=== PATIENT | male | born 1940 | race Caucasian/White ===

== ENCOUNTER 2016-10-21 23:20 | Inpatient (IN) ==
[2016-10-21] MEDS ORDERED: IOPAMIDOL 100 ML BOTTLE IJ ONE (23:21)
[2016-10-21] MEDS: ONDANSETRON 4 MG/2 ML VIAL ONE ×2 (23:45→23:55)
[2016-10-22 00:18] LABS: Basophils # (Auto) 0.1 K/mcL (0.0-0.3); Basophils % (Auto) 0.6 % (0.0-2.0); Eosinophils # (Auto) 0.2 K/mcL (0.0-0.7); Eosinophils % (Auto) 1.8 % (0.0-7.0); Granulocytes % (Auto) 62.2 % (38.0-78.0); Lymphocytes # (Auto) 2.6 K/mcL (1.5-4.8); Lymphocytes % (Auto) 25.4 % (15.5-49.0); Mean Corpuscular HGB Conc 33.1 g/dL (31.0-36.0); Mean Corpuscular Hemoglobin 32.4 pg (26.0-34.0); Platelet Count 287 K/mcL (140-440); RBC 5.15 M/mcL (4.50-5.90); Red Cell Distribution Width 14.8 % (11.5-14.5)
[2016-10-22 00:33] LABS: Blood Urea Nitrogen 17 mg/dl (8-23)
[2016-10-22 00:53] LABS: ALT/SGPT 14 U/l (0-40); Albumin 3.9 gm/dL (3.2-5.2); Albumin/Globulin Ratio 1.1 (1.0-2.3); Alkaline Phosphatase 58 U/L (39-117); Blood Urea Nitrogen 18 mg/dl (8-23)
[2016-10-22] MEDS ORDERED: LEVOFLOXACIN 500 MG/100 ML BAG IV ONE (01:10)
[2016-10-22] MEDS ORDERED: ACETAMINOPHEN 325 MG TABLET PO PRN (03:57)
[2016-10-22] MEDS ORDERED: MAGNESIUM HYDROXIDE 30 ML ORAL.SUSP PO PRN (03:57)
[2016-10-22] MEDS ORDERED: ONDANSETRON 4 MG/2 ML VIAL IV PRN (03:57)
[2016-10-22] MEDS ORDERED: DOCUSATE SODIUM 100 MG CAPSULE PO PRN (03:57)
[2016-10-22] MEDS ORDERED: ALBUTEROL SULFATE 2.5 MG/3 ML NEBULIZER NEB PRN (03:57)
[2016-10-22 06:44] LABS: ALT/SGPT 12 U/l (0-40); Albumin 3.6 gm/dL (3.2-5.2); Albumin/Globulin Ratio 1.2 (1.0-2.3); Alkaline Phosphatase 52 U/L (39-117); Basophils # (Auto) 0.1 K/mcL (0.0-0.3); Basophils % (Auto) 0.5 % (0.0-2.0); Bilirubin,Direct 0.2 mg/dL (0.0-0.3); Blood Urea Nitrogen 14 mg/dl (8-23); Eosinophils # (Auto) 0 K/mcL (0.0-0.7); Eosinophils % (Auto) 0.2 % (0.0-7.0); Gamma Glutamyl Transpeptidase 39 U/L (8-61); Lymphocytes # (Auto) 1.1 K/mcL (1.5-4.8); Lymphocytes % (Auto) 7.4 % (15.5-49.0); Magnesium 1.6 mg/dL (1.6-2.5); Mean Cell Volume 97.3 fL (80.0-100.0); Mean Corpuscular HGB Conc 33.3 g/dL (31.0-36.0); Mean Corpuscular Hemoglobin 32.4 pg (26.0-34.0); Monocytes # (Auto) 0.9 K/mcL (0.1-0.9); Monocytes % (Auto) 5.9 % (1.0-12.0); Platelet Count 287 K/mcL (140-440); RBC 4.93 M/mcL (4.50-5.90); Red Cell Distribution Width 14.8 % (11.5-14.5); Uric Acid 9.5 mg/dL (2.5-8.0)
--- NOTE | 2016-10-22 07:13 | Internal Med History&Physical ---
Medical - H&P: HPI Patient information: Note initiated : 10/22/16 at 7:08 am Service Date, if different from initiated Date: [] Patient: Jeffry Linares 76 y/o M admitted on 10/22/16 for Stroke (neurology). Chief Complaint: [] History of present illness: Mr. Linares is a 76 year old man who lives in [place]. He apparently drives to [place] and a [employer] [place], often, to visit family. He apparently drove here from [place] yesterday, and then checked into a motel. After that he went across the street to a restaurant and bar and drank a great number of years. His 16-year-old grandson noticed that he was having a hard time staying upright on his stool, and his speech seemed off. He also noted that he try to eat dinner, and then started to cough and seem short of breath after trying to eat. The patient did not really recall most of these events. The patient was brought into the emergency room around midnight, and was found to have room air oxygen saturations in the mid 80s. The patient cannot recall recent fever or chills, headaches or dizziness, new eye or ear symptoms, sore throat or cough, chest pain or palpitations, shortness of breath or wheezing, abdominal pain, nausea or vomiting, diarrhea or constipation, dysuria. He is a very poor historian, and cannot recall most of his medical history or his medications or why he takes medications. His family arrives later, and tells us that he is a very heavy drinker, often drinking between 20 and 30 cans of beer a day. They say he tends to drink alcohol all day, including some liquor, and then will eat one meal at the end of the day. He spends a lot of time at a local [employer]. ER evaluation showed normal white blood cell count, markedly elevated alcohol level, elevated BNP. Chest CT showed emphysematous changes, but no definite pneumonia or CHF. The patient was admitted for further monitoring, workup, treatment of underlying cause of hypoxia. Past medical history: We did obtain some records from [place]: Coronary artery disease, status post VA in December 1998 with cardiac arrest, status post coronary intervention. PTCA December 1998. 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 Chronic back pain Hepatomegaly Severe allergic reaction of unknown etiology. Chronic left heel ulcer, which is intermittently followed by podiatry. He keeps his foot in a boot to protect the heel. Occupational injuries to the right arm and left leg in 1998 in [place]. 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 History of temporary colostomy for a rectal problem in 1998. Medications: Lopid 600 mg daily Aspirin 325 mg daily Verapamil 240 mg daily Spironolactone 25 mg daily Omeprazole 20 mg daily Lasix 40 mg daily next line simethicone 125 mg every 6 hours as needed Imodium right ear 2 mg daily as needed Nitroglycerin sublingual as needed Ativan 0.5 mg p.o. twice daily as needed Flovent discus 50 mcg twice daily, patient states he has never used this Lisinopril 20 mg twice daily Lipitor 20 mg nightly (insurance and benefits clerk's notes from August, also indicated vitamin C, Krill oil, probiotics , multivitamin, Nadia, senna, fish oil) Allergies: Metoprolol-severe Levaquin Family history: Social history: The patient apparently lives with a 50-year-old roommate. They both drink quite a bit, and the patient drinks somewhere between 4 and 30 cans of beer per day, with occasional hard liquor. He smoked 1 pack of cigarettes per day from the age of 15 until about 60, when he quit smoking, but then started using chewing tobacco. He does not use drugs. 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 Medical - H&P: Meds Home Medications Medication Instructions Recorded Confirmed Type Aspirin [Lite Coat Aspirin] 325 mg PO DAILY 10/22/16 10/22/16 History Atorvastatin [Lipitor] 20 mg PO HS 10/22/16 10/22/16 History Fluticasone Propionate [Flovent 50 mcg IH BID 10/22/16 10/22/16 History Diskus] Furosemide [Lasix] 40 mg PO DAILY 10/22/16 10/22/16 History Gemfibrozil [Lopid] 600 mg PO DAILY 10/22/16 10/22/16 History LORazepam [Ativan] 0.5 mg PO BID PRN 10/22/16 10/22/16 History Lisinopril [Zestril] 20 mg PO BID 10/22/16 10/22/16 History Loperamide HCl [Imodium A-D] 2 mg PO ONCE PRN 10/22/16 10/22/16 History Nitroglycerin [Nitrostat] 0.4 mg SL Q5M PRN 10/22/16 10/22/16 History Omeprazole [PriLOSEC] 20 mg PO DAILY 10/22/16 10/22/16 History Simethicone 125 mg PO Q6 PRN 10/22/16 10/22/16 History Spironolactone [Aldactone] 25 mg PO DAILY 10/22/16 10/22/16 History Verapamil HCl [Verapamil ER] 240 mg PO DAILY 10/22/16 10/22/16 History Allergies Allergy/AdvReac Type Severity Reaction Status Date / Time No Known Drug Intolerances Allergy Unknown None Stated Unverified 08/09/14 03:10 Medical - H&P: Exam - Constitutional Vitals: Temp Pulse Resp BP Pulse Ox 98 F 33 L 16 109/82 92 10/22/16 03:57 10/22/16 03:16 10/22/16 03:57 10/22/16 03:57 10/22/16 03:57 O2 saturation is ranging 90-94% on 4 L nasal cannula. On exam, he is a fatigued appearing white male, who is otherwise in no acute distress. He is receiving a breathing treatment when I entered the room. Normocephalic, atraumatic. Neck: Is supple, without obvious lymphadenopathy, JVD, thyromegaly, bruits. Cardiac exam: An irregularly irregular rhythm, with what sounds like a normal S1 and S2, without murmurs, rubs, gallops. There is quite a bit of ectopy. Lungs: Patient has fairly coarse breath sounds, with overall diminishment of air movement. Breathing is nonlabored. He does have occasional cough. Taylors abdomen: Is protuberant, but otherwise nontender, with normal bowel sounds. There is no guarding or rebound. Extremities: Finger nails all appear clubbed. He has trace pitting edema of the ankles and feet. The left foot and leg are kept in a large black brace. When this is removed he does have 2 small ulcers on his left heel, which are somewhat damp, but otherwise clean without obvious infection. He does have signs of old stasis dermatitis. Next Neurologic: The patient is awake and alert, but is very slow to answer questions , and seems to have very poor memory of his medical problems or why he takes switch medications. (His grandson is in the room with him, and says that he does get shaky in the morning sometimes, before he starts to drink his beer. The patient notes that he never drives anywhere after drinking, and always waits until he has finished any driving, to start drinking for the day. He denies ever having a DUI.) The patient is awake and alert, but does not quickly respond to any question, and it is not clear if that is his baseline peer Cranial nerves II through XII are grossly intact with maybe minimal drooping of the left mouth. Motor exam: Patient is moving all extremities equally. Cerebellar exam: No tremor is noted, exam is grossly nonfocal. Medical - H&P: Reslt - Labs CBC & Chem 7: 10/22/16 05:34 10/22/16 23:22 Labs: Short CBC 10/22/16 Range/Units 05:34 WBC 14.4 H (4.5-11.0) K/mcL Hgb 16.0 (13.5-16.5) g/dL Hct 48.0 (41.0-55.0) % Plt Count 287 (140-440) K/mcL BMP 10/22/16 10/22/16 05:34 23:22 Sodium 131 L 125 L Potassium 3.5 3.5 Chloride 93 L 85 L Carbon Dioxide 21 L 17 L BUN 14 18 Creatinine 1.0 1.3 H Glucose 118 H 91 Calcium 8.5 L 8.9 Cardiac Enzymes 10/22/16 Range/Units 23:22 Troponin T < 0.01 (0-0.03) ng/ml Liver Function 10/22/16 10/22/16 Range/Units 05:34 23:22 Total Bilirubin 0.5 0.4 (0.0-1.0) mg/dL Direct Bilirubin 0.2 (0.0-0.3) mg/dL GGT 39 (8-61) U/L AST 17 18 (0-37) U/l ALT 12 14 (0-40) U/l Alkaline Phosphatase 52 58 (39-117) U/L Albumin 3.6 3.9 (3.2-5.2) gm/dL October 22: Chest x-ray: Widespread increased interstitial lung markings bilaterally, with mild cardiomegaly. Prominent central pulmonary vessels. Stable diffuse pulmonary disease, which may be a combination of COPD and interstitial pulmonary edema. October 21: Ethyl alcohol level elevated at 0.142 CBC White blood cell count 10,000, hemoglobin 16.7, hematocrit 50, differential shows RDW 14.8, granulocyte count 12,300, low lymphocyte count of 1100 Chemistry panel: Sodium low 129, potassium 3.4, chloride 90, anion gap 19, BUN 17, creatinine 1.3 Pro time is still elevated at 14.9, INR 1.3 D-dimer 2.83, elevated Lactic acid was normal at 1.9 BNP elevated at 1184 Troponin normal at less than 0.01 EKG: Shows atrial fibrillation with frequent ectopy and a rate of about 100 CT angiogram of the chest: Mild to moderate centrilobular emphysema throughout both lungs. Widely enlarged heart. Large amount of calcified plaque in the LAD and circumflex and right coronary artery. Cardiomegaly with probable CHF, cannot rule out inflammatory process. Head CT: Moderate asymmetry of the left frontal lobe, with milder atrophy of the right frontal lobe both temporal lobes left parietal lobe and cerebellum. No acute infarct or hemorrhage. Ossified plaques are noted. Medical - H&P: A/P (1) Metabolic acidosis Current visit: Yes Status: Acute (2) Alcoholic intoxication Current visit: Yes Status: Acute (3) Hypoxia Current visit: Yes Status: Acute - Narrative A/P Narrative: #1. Pulmonary. The patient presents with room air hypoxia. He has decreased breath sounds, and clubbing on exam, and I suspect he may have chronic hypoxia related to COPD . He also has known underlying CHF and coronary artery disease. CT scan cannot rule out an inflammatory process, but he does not offer any symptoms of acute pneumonia. -DuoNeb and budesonide nebulizers, and convert these 2 inhalers at discharge. -Continue oxygen to keep saturations above 90%. He may end up needing to go home with oxygen. 2. Cardiac. Known ischemic coronary disease. His insurance and benefits clerk had mentioned perhaps doing a nuclear stress test in November, to see if his previous ischemic sounds have worsened. -Initial enzymes were negative. EKG is suggestive of underlying atrial flutter with frequent ventricular ectopy versus ectopy with aberrancy. I suspect this is also chronic, and aggravated by his impressive alcohol consumption. Magnesium is also a bit low, and will be replaced IV. -Resume aspirin, verapamil, spironolactone, Lasix, lisinopril, as tolerated. Hypertension. Initial blood pressures were a bit on the low side, and are now probably closer to his baseline. History of paroxysmal ventricular tachycardia. It is unclear if the current ectopy is ventricular or aberrant conduction. Current EKG appears to show atrial flutter. He would be a candidate for anticoagulation, but I will leave this to his insurance and benefits clerk, as he is also at high risk for bleeding, given his excess alcohol use. -Optimize magnesium and potassium. Keep O2 saturations above 90%. History of CHF. He may have mild pulmonary edema, but I do not think I am willing to diurese him further, given blood pressure issues and significant electrolyte abnormalities. He should have follow-up with his insurance and benefits clerk when he gets back to [place], as he is due for a nuclear stress test, and should probably have follow-up echo. 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 #3. Alcohol abuse. This patient drinks fairly massive amounts of alcohol every day. He is still driving, which is quite worrisome. I discussed with both the patient and his grandson, but this is not a safe practice, even though he says he does not drink on any day that he drives, until he is finished driving. That would mean , however, that he is at fairly high risk for alcohol withdrawal symptoms when he takes a day to drive over here. 4. CODE STATUS: Full code, according to the patient and his [id number], although he has nothing in writing formally. 5.: DVT prophylaxis: Subcu heparin was started. 6. Renal. Patient presents with hyponatremia and other electrolyte abnormalities, likely due to his long-standing diuretic use and alcohol abuse. Diuretics were held this morning. rePlaced magnesium. Creatinine is a bit higher this morning than last night. Continue to monitor. 7. Hyperlipidemia. Continue Lopid and Lipitor 8. GERD. Continue omeprazole. 9. She reports history of anxiety, for which she uses Ativan twice daily as needed. This seems like a high risk medication in the setting of chronic alcohol abuse, but he may be using this to treat some withdrawal symptoms during the day. 10. Neurologic. CT scan shows significant atrophy, also possibly due to chronic alcohol use and perhaps chronic hypoxia. So far today, I have visited with the patient twice, reviewed records from 2 of his regular doctors, as well as our test results, reviewed reviewed the case with our ER doctor, as well as our staff team, and written orders. Total time spent on this patient so far today, includes approximately 120 minutes. Medical - H&P: Qual - VTE Deep Vein Thrombosis/Pulmonary Embolism Present on Admission: No
[2016-10-22] MEDS ORDERED: LORazepam 0.5 MG TABLET PO PRN (07:28)
[2016-10-22] MEDS ORDERED: NITROGLYCERIN 0.4 MG TAB.SUBL SL PRN (07:28)
[2016-10-22] MEDS ORDERED: PANTOPRAZOLE 40 MG TABLET PO SCH (07:30)
[2016-10-22] MEDS ORDERED: LOPERAMIDE 2 MG CAPSULE PO PRN (07:32)
--- NOTE | 2016-10-22 07:55 | Emergency Department Note ---
General Adult HPI - General Chief complaint: Stroke Symptoms Time Seen by Provider: 10/21/16 23:32 Source: EMS Mode of arrival: EMS Limitations: no limitations - History of Present Illness HPI Narrative: Patient was brought in by EMS with initial report of possible stroke with left hemiparesis and slurred speech and facial droop. However on arrival emergency room the patient does not appear to have the symptoms and is very intoxicated and according the family has been drinking heavily and does drink heavily on a daily basis. It is extremely hard to evaluate this patient. Due to his intoxication he has great difficulty following commands. Also difficulty speaking. The family is very unhelpful in his evaluation. He is from [place] and does have a history of a previous myocardial infarction and possible atrial fibrillation. - Related Data Home Medications Medication Instructions Recorded Confirmed Aspirin [Lite Coat Aspirin] 325 mg PO ONCE 10/22/16 10/22/16 Atorvastatin [Lipitor] 20 mg PO HS 10/22/16 10/22/16 Fluticasone Propionate [Flovent 50 mcg IH BID 10/22/16 10/22/16 Diskus] Furosemide [Lasix] 40 mg PO DAILY 10/22/16 10/22/16 Gemfibrozil [Lopid] 600 mg PO ONCE 10/22/16 10/22/16 LORazepam [Ativan] 0.5 mg PO BID PRN 10/22/16 10/22/16 Lisinopril [Zestril] 20 mg PO BID 10/22/16 10/22/16 Loperamide HCl [Imodium A-D] 2 mg PO ONCE PRN 10/22/16 10/22/16 Nitroglycerin [Nitrostat] 0.4 mg SL Q5M PRN 10/22/16 10/22/16 Omeprazole [PriLOSEC] 20 mg PO ONCE 10/22/16 10/22/16 Simethicone 125 mg PO Q6 PRN 10/22/16 10/22/16 Spironolactone [Aldactone] 25 mg PO ONCE 10/22/16 10/22/16 Verapamil HCl [Verapamil ER] 240 mg PO ONCE 10/22/16 10/22/16 Allergies Allergy/AdvReac Type Severity Reaction Status Date / Time No Known Drug Intolerances Allergy Unknown None Stated Unverified 08/09/14 03:10 Review of Systems All systems ED: reviewed and negative except as stated. Limitations: ROS unobtainable due to patients medical condition Past Medical History - Past Medical History Medical history: Reports: atrial fibrillation, myocardial infarction Physical Exam Patient appears very intoxicated. He is moving all extremities well at this time. Very hard to evaluate for facial droop as I cannot get him to follow commands very well speech is currently somewhat mumbled and slurred but he is very intoxicated. - General Limitations: no limitations General appearance: in no apparent distress, appears intoxicated - Head Head exam: atraumatic, normocephalic - Eye Eye exam: Present: normal appearance - ENT ENT exam: normal exam - Neck Neck exam: Present: normal inspection - Chest Chest inspection: Present: normal inspection - Respiratory Respiratory exam: Present: normal lung sounds bilaterally - Cardiovascular Cardiovascular exam: Present: regular rate, normal rhythm, normal heart sounds - Abdominal Exam Abdominal exam: Present: soft. Absent: distention, tenderness - Skin Skin exam: Present: warm, dry, intact, normal color Course Vital Signs Temperature 95.7 F L 10/21/16 23:21 Pulse Rate 130 H 10/21/16 23:21 Respiratory Rate 19 10/21/16 23:21 Blood Pressure 156/108 10/21/16 23:21 Pulse Oximetry (%) 84 L 10/21/16 23:21 Temperature 98 F 10/22/16 03:57 Pulse Rate 33 L 10/22/16 03:16 Respiratory Rate 16 10/22/16 03:57 Blood Pressure 109/82 10/22/16 03:57 Pulse Oximetry (%) 92 10/22/16 03:57 Medical Decision Making - [facility] Narrative Medical decision making narrative: This patient was quite hypoxic with O2 sats in the 80s requiring 6 L of oxygen to be in the 90s. Chest x-ray to me looks like possible pneumonia. We did do a chest CT a which did not show evidence of pulmonary embolus. Also showed emphysematous changes. I did start the patient on antibiotics including Levaquin. Discussed the case with Dr. Charles the hospitalist and the patient will be admitted to the hospital for pneumonia. - Lab Data Lab results reviewed: Yes I reviewed the patient's lab results. Result diagrams: 10/22/16 05:34 10/22/16 23:22 Lab Results 10/21/16 10/21/16 10/21/16 Range/Units 23:22 23:22 23:22 WBC 10.2 (4.5-11.0) K/mcL RBC 5.15 (4.50-5.90) M/mcL Hgb 16.7 H (13.5-16.5) g/dL Hct 50.5 (41.0-55.0) % MCV 98.0 (80.0-100.0) fL MCH 32.4 (26.0-34.0) pg MCHC 33.1 (31.0-36.0) g/dL RDW 14.8 H (11.5-14.5) % Plt Count 287 (140-440) K/mcL MPV 7.8 (7.4-10.4) fL Gran % 62.2 (38.0-78.0) % Lymph % (Auto) 25.4 (15.5-49.0) % Terry % (Auto) 10.0 (1.0-12.0) % Eos % (Auto) 1.8 (0.0-7.0) % Baso % (Auto) 0.6 (0.0-2.0) % Gran # 6.3 (1.8-8.0) K/mcL Lymph # (Auto) 2.6 (1.5-4.8) K/mcL Terry # (Auto) 1.0 H (0.1-0.9) K/mcL Eos # (Auto) 0.2 (0.0-0.7) K/mcL Baso # (Auto) 0.1 (0.0-0.3) K/mcL PT 14.3 (11.9-14.5) sec INR 1.1 (0.9-1.1) APTT 34 (20-37) sec VBG Lactic Acid (0.5-2.2) mmol/L Sodium 129 L (133-145) mmol/L Potassium 3.4 (3.3-5.1) mmol/L Chloride 90 L (96-108) mmol/L Carbon Dioxide 20 L (22-30) mmol/L Anion Gap 19.0 H (8-16) BUN 17 (8-23) mg/dl Creatinine 1.3 H (0.7-1.2) mg/dl GFR Calculation 53 Glucose 91 (70-105) mg/dL Calcium 8.7 (8.6-10.4) mg/dl Hold Red Top Not Reportable Ethyl Alcohol (<0.010) gm/dl 10/21/16 10/22/16 Range/Units 23:22 00:35 WBC (4.5-11.0) K/mcL RBC (4.50-5.90) M/mcL Hgb (13.5-16.5) g/dL Hct (41.0-55.0) % MCV (80.0-100.0) fL MCH (26.0-34.0) pg MCHC (31.0-36.0) g/dL RDW (11.5-14.5) % Plt Count (140-440) K/mcL MPV (7.4-10.4) fL Gran % (38.0-78.0) % Lymph % (Auto) (15.5-49.0) % Terry % (Auto) (1.0-12.0) % Eos % (Auto) (0.0-7.0) % Baso % (Auto) (0.0-2.0) % Gran # (1.8-8.0) K/mcL Lymph # (Auto) (1.5-4.8) K/mcL Terry # (Auto) (0.1-0.9) K/mcL Eos # (Auto) (0.0-0.7) K/mcL Baso # (Auto) (0.0-0.3) K/mcL PT (11.9-14.5) sec INR (0.9-1.1) APTT (20-37) sec VBG Lactic Acid 1.9 (0.5-2.2) mmol/L Sodium (133-145) mmol/L Potassium (3.3-5.1) mmol/L Chloride (96-108) mmol/L Carbon Dioxide (22-30) mmol/L Anion Gap (8-16) BUN (8-23) mg/dl Creatinine (0.7-1.2) mg/dl GFR Calculation Glucose (70-105) mg/dL Calcium (8.6-10.4) mg/dl Hold Red Top Ethyl Alcohol 0.142 H (<0.010) gm/dl Disposition Pt seen by CERTIFIED WELDER/PA only: No Clinical Impression: Alcoholic intoxication, Hypoxia, Pneumonia Disposition: Xfer As Inpt ([facility]) Condition: Fair
[2016-10-22] MEDS: IPRATROPIUM/ALBUTEROL 3 ML AMPUL.NEB NEB SCH ×2 (07:59→15:09)
--- NOTE | 2016-10-22 08:00 | Cat Scan Report ---
History: Stroke symptoms with left-sided weakness Findings: The brain was imaged without contrast at 2.5 mm intervals. There is moderate asymmetric atrophy of the left frontal lobe. Milder atrophy is seen in the right frontal lobe, both temporal lobes, left parietal lobe and cerebellum. There is no evidence of an infarct, hemorrhage or mass effect. The ventricles are normal allowing for atrophy. There are calcified plaques in the cavernous portions of both internal carotids. Impression: Asymmetric cerebral atrophy and no acute abnormality Interpreted and Authenticated by: Marco Antonio Roman 10/22/16
--- NOTE | 2016-10-22 08:03 | XRay Report ---
HISTORY: Reason for Exam:low sats FINDINGS: There is a generalized haziness in the lung parenchyma throughout both lung shilrey. No lobar consolidation is present. The heart is mildly enlarged. The pulmonary vessels are of scattered by the superimposed pulmonary disease. The roxy are prominent. This is probably due to vascular engorgement. Comparison with the prior exam from 01/13/05 shows the heart is larger today. The diffuse pulmonary disease is a chronic or recurrent finding. IMPRESSION: Cardiomegaly Mild to moderate alveolar opacities throughout both lungs. This could be a combination of pulmonary edema and an inflammatory process Interpreted and Authenticated by: Marco Antonio Roman 10/22/16
--- NOTE | 2016-10-22 08:08 | Cat Scan Report ---
CLINICAL INFORMATION: Reason for Exam:hypoxic COMPARISON: None TECHNIQUE: Axial images obtained through the chest. intravenous contrast administration was administered, and scanning was performed during pulmonary arterial phase. Sagittally and coronally reformatted images were obtained. MIP reformatted images. FINDINGS: Patient has mild to moderate centrilobular emphysema throughout both lungs. There is significant thickening of the intralobular septa throughout both lung shirley. No consolidating infiltrate or mass are present. There is no pleural effusion. The heart is mildly enlarged. There is a large amount calcified plaque in the left anterior descending coronary with a moderate amount in the circumflex with milder involvement in the right coronary artery and aorta. No pericardial effusion is present. The central pulmonary arteries are prominent but there is no evidence of pulmonary emboli. There are couple benign-appearing lymph nodes in the mediastinum. Incidentally noted are couple cysts in the liver. IMPRESSION: COPD Cardiomegaly with thickening of the interlobular septa. This is probably due to congestive heart failure with interstitial pulmonary edema. However, an interstitial inflammatory process cannot be excluded. Interpreted and Authenticated by: Marco Antonio Roman 10/22/16
[2016-10-22] MEDS ORDERED: SIMETHICONE 80 MG TAB.CHEW CHEWED PRN (08:30)
[2016-10-22] MEDS ORDERED: ENOXAPARIN 40 MG/0.4 ML SYRINGE SQ SCH (09:00)
[2016-10-22] MEDS ORDERED: LISINOPRIL 20 MG TABLET PO SCH (09:00)
[2016-10-22] MEDS ORDERED: GEMFIBROZIL 600 MG TABLET PO SCH (09:00)
[2016-10-22] MEDS ORDERED: VERAPAMIL 120 MG TAB.XL.24H PO SCH (09:00)
[2016-10-22] MEDS ORDERED: NICOTINE 14 MG PATCH TOPICAL SCH (10:00)
--- NOTE | 2016-10-22 11:45 | XRay Report ---
HISTORY: Reason for Exam:increased oxygen needs FINDINGS: There are stable widespread increased interstitial lung markings bilaterally. The heart remains mildly enlarged. No consolidating infiltrate has developed and there is no pleural effusion. Central pulmonary vessels are still prominent. The aorta is mildly tortuous. There has been no significant change from the prior exam done at 12:17 AM on the same date. IMPRESSION: Stable diffuse pulmonary disease which may be a combination of COPD and interstitial pulmonary edema Interpreted and Authenticated by: Marco Antonio Roman 10/22/16
[2016-10-22] MEDS ORDERED: MAGNESIUM SULFATE 2 GM/50 ML BAG IV ONE (14:44)
--- NOTE | 2016-10-22 17:43 | Cat Scan Report ---
History: Stroke symptoms with left-sided weakness Findings: The brain was imaged without contrast at 2.5 mm intervals. There is an evolving infarct involving both grady and white matter laterally in the right hemisphere. This is at the boundary between the frontal temporal and parietal lobes. This was not present on yesterday's exam. It has lower attenuation than the surrounding brain tissue and measures approximately 4 x 4.5 cm. The Infarct also involves the right side insula and external capsule. No other infarct is detected. There is no hemorrhage or mass effect. Asymmetric atrophy is again seen in the left frontal lobe. 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
[2016-10-22] MEDS ORDERED: IOPAMIDOL 100 ML BOTTLE IV ONE (18:00)
--- NOTE | 2016-10-22 18:22 | Cat Scan Report ---
History: New stroke with left-sided weakness Technique: Intravenous nonionic contrast was injected intravenously. Arterial phase images were acquired from the descending aorta to the top of the head. Sagittal and coronal reformats along with MIP images were created of the brain and neck separately. Findings: Neck: Patient has moderate COPD and pulmonary fibrosis in both upper lobes. There is a moderate amount calcified plaque in the aortic arch in the origin of the great vessels arising from the arch. Aorta is normal in caliber and there is no dissection. There is a large amount densely calcified plaque in the proximal internal carotid bilaterally. There is greater involvement on the right side than left. At the origin of the right internal carotid there is a critical stenosis with greater than 90% narrowing. There is blood flow beyond this point which extends intracranially. Scattered plaques are present in the mid and distal right internal carotid as well as the petrous portion of the right internal carotid. There is a less than 50% stenosis in the petrous portion. At the left carotid bifurcation there is 50% stenosis in the proximal portion with no stenosis distally. There are eccentric plaques in the petrous portion of the left internal carotid which are not causing stenosis. There is an 80-90 % stenosis at the origin of the left external carotid. There is little stenosis at the origin of the right external carotid. The vertebral arteries are normal in caliber. The left side is dominant. Head: There are plaques in the cavernous portions of both internal carotids. These are not causing hemodynamically significant stenosis. The anterior cerebral center normal. The left middle cerebral artery is normal. The M1 and M2 segments of the right middle cerebral artery are normal. There is complete occlusion of several of the third order branches of the right middle cerebral artery at the boundary between the frontal, parietal and temporal lobe. This correlates with the nonhemorrhagic infarct seen on the preceding unenhanced head CT. There are large posterior communicating arteries bilaterally. The vertebral and basilar arteries as well as posterior fossa circulation are normal. Anterior communicating artery is also patent. Impression: Greater than 90% stenosis at the origin the right internal carotid due to a large amount of plaque Less than 50% stenosis in the proximal left internal carotid Occlusion of the third order branches of the right middle cerebral artery, with an associated nonhemorrhagic infarct. Hospitalist was called with results Interpreted and Authenticated by: Marco Antonio Roman 10/22/16
[2016-10-22] MEDS ORDERED: CLOPIDOGREL 75 MG TABLET PO ONE (18:48)
--- NOTE | 2016-10-22 20:01 | Discharge Summary ---
Medical - DS: Prov Patient information: Note initiated : 10/22/16 at 7:59 pm Patient: Jeffry Linares 76 y/o M admitted on 10/22/16 for Stroke (neurology). Date of admission: 10/22/16 03:57 Discharge date: 10/22/16 Primary care physician: Primary care physician, Dr. Villa Morrow with [facility]. Associate Professor Of Communication, Dr. Lezama at [facility], near [facility]. Admitting clinician: Kathy Tovar Consults: Tele-stroke consult with Dr. Nadira Luna. Attending physician on discharge: Kathy Tovar Medical - DS: Meds - Discharge Medications Active and Home Medications: Discharge medications: Oxygen 1-2 L, to maintain O2 saturations above 90% Tylenol 650 mg every 6 hours as needed Albuterol nebulizer 2.5 mg every 4 hours as needed DuoNeb nebulized treatments 3 times daily Aspirin 325 mg daily Plavix 75 mg daily, started this evening Lipitor 20 mg nightly Budesonide 0.5 mg nebulizers every 12 hours Colace 100 mg p.o. twice daily as needed Lasix 40 mg daily--would hold until blood pressure is higher Gemfibrozil 600 mg daily Lisinopril 20 mg p.o. twice daily--consider decreasing to once a day, until blood pressures recover a bit Imodium 2 mg daily as needed Ativan 0.5 mg p.o. twice daily as needed Milk of magnesia 30 mL as needed NicoDerm patch 14 mg topically daily Sublingual nitroglycerin as needed Omeprazole 20 mg daily for Protonix 40 mg daily next line simethicone 80 mg daily as needed Spironolactone 25 mg p.o. daily Verapamil 240 mg p.o. daily Zofran 4 mg IV every 4 hours as needed DisContinued: Lovenox 40 mg subcu daily Previous home Medications: Aspirin [Lite Coat Aspirin] 325 mg PO DAILY 10/22/16 [History Confirmed Last Taken Unknown] Atorvastatin [Lipitor] 20 mg PO HS 10/22/16 [History Confirmed 10/22/16 Last Taken Unknown] Patient denies taking this. Fluticasone Propionate [Flovent Diskus] 50 mcg IH BID 10/22/16 [History Confirmed 10/22/16 Last Taken Unknown] Furosemide [Lasix] 40 mg PO DAILY 10/22/16 [History Confirmed 10/22/16 Last Taken Unknown] Gemfibrozil [Lopid] 600 mg PO DAILY 10/22/16 [History Confirmed 10/22/16 Last Taken Unknown] LORazepam [Ativan] 0.5 mg PO BID PRN 10/22/16 [History Confirmed 10/22/16 Last Taken Unknown] Lisinopril [Zestril] 20 mg PO BID 10/22/16 [History Confirmed 10/22/16 Last Taken Unknown] Loperamide HCl [Imodium A-D] 2 mg PO ONCE PRN 10/22/16 [History Confirmed Last Taken Unknown] Nitroglycerin [Nitrostat] 0.4 mg SL Q5M PRN 10/22/16 [History Confirmed Last Taken Unknown] Omeprazole [PriLOSEC] 20 mg PO DAILY 10/22/16 [History Confirmed 10/22/16 Last Taken Unknown] Simethicone 125 mg PO Q6 PRN 10/22/16 [History Confirmed 10/22/16 Last Taken Unknown] Spironolactone [Aldactone] 25 mg PO DAILY 10/22/16 [History Confirmed 10/22/16 Last Taken Unknown] Verapamil HCl [Verapamil ER] 240 mg PO DAILY 10/22/16 [History Confirmed Last Taken Unknown] Medical - DS: Hosp Hospital course: Mr. Linares is a 76 year old M October 22, 2016: History of present illness: Mr. Linares is a 76 year old man who lives in [place]. He apparently drives to [place] and a [facility], often, to visit family. He apparently drove here from [place] yesterday, and then checked into a motel. After that he went across the street to a restaurant and bar and drank a great number of years. His 16-year-old grandson noticed that he was having a hard time staying upright on his stool, and his speech seemed off. He also noted that he try to eat dinner, and then started to cough and seem short of breath after trying to eat. The patient did not really recall most of these events. The patient was brought into the emergency room around midnight, and was found to have room air oxygen saturations in the mid 80s. The patient cannot recall recent fever or chills, headaches or dizziness, new eye or ear symptoms, sore throat or cough, chest pain or palpitations, shortness of breath or wheezing, abdominal pain, nausea or vomiting, diarrhea or constipation, dysuria. He is a very poor historian, and cannot recall most of his medical history or his medications or why he takes medications. His family arrives later, and tells us that he is a very heavy drinker, often drinking between 20 and 30 cans of beer a day. They say he tends to drink alcohol all day, including some liquor, and then will eat one meal at the end of the day. He spends a lot of time at a local casino. ER evaluation showed normal white blood cell count, markedly elevated alcohol level, elevated BNP. Chest CT showed emphysematous changes, but no definite pneumonia or CHF. The patient was admitted for further monitoring, workup, treatment of underlying cause of hypoxia. October 22, 2016, 8:00 PM: Hospital course: Last evening, this patient apparently was sent to the emergency room because his grandson thought perhaps he had slurred speech and possible weakness. It appeared to the ER doctor on arrival, that he had no focal weakness. His history and his exam were much affected by the fact that he had an alcohol level of greater than 0.14, and appeared intoxicated. The main finding in the emergency room was that he was hypoxic on room air, and chest x-ray was suggestive of possible CHF versus pneumonia. Follow-up CT scan confirmed that 1 of these was probably likely, in addition to underlying COPD. The patient was admitted with hypoxia, presumably due to COPD exacerbation, versus CHF versus pneumonia. He was started on oxygen, nebulizer treatments, IV antibiotics. Additional diuretics were not added, as he had numerous electrolyte abnormalities. Around 8:00 this morning, the patient still could not give much of a history. He had no particular complaints. He said he felt like he was back to normal. He denied any significant weakness, and said he was hoping to get back on the road today, as he was on his way to [facility]. The nurses report that he was able to get out of bed and walk to a chair this morning, and feed himself breakfast. His [id number] visited with him starting around 10 AM. 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 Around 330 this afternoon she noticed that there is definitely clumsiness of the left hand, but she thought perhaps this was just left over from whatever happened last night. Sometime after 4:00, physical therapy went into work with the patient, and noticed that he was having a very hard time holding onto the walker with his left hand, and seemed to be falling to the left side. At that time, on exam, the patient reported he was not really aware of any left- sided weakness. He was alert, but speech was slurred. On cranial nerve exam, there was an obvious left facial droop. On motor exam he had obvious weakness of the left arm, and severe left-sided pronator drift. He could not really perform finger to nose exam with his left hand. Patient Monitor was severely decreased. He did have 3+-4 strength of his left biceps with flexion and extension. Left lower extremity did not appear especially affected. Stat CT angiogram of the head and neck was ordered. This showed complete occlusion of several of the third order branches of the right middle cerebral artery, at the boundary between the frontal, parietal, and temporal lobes. This correlates with a nonhemorrhagic infarct seen on the preceding unenhanced head CT. Also noted was a 90% narrowing at the origin of the right internal carotid artery, causing a critical stenosis. A tele- stroke consult was performed, and they felt that the time of onset of his symptoms was really not very clear, and therefore recommended against TPA. They did however, suggest that the patient might be better off in a hospital with a stroke unit and access to neurology, for close monitoring. They recommended that we start Plavix, given that the patient had failed aspirin therapy. They also suggested permissive hypertension, although the patient really has not been hypertensive at all today. On exam, the patient is awake and alert. His speech remains slurred. Neck: Is supple, without obvious lymphadenopathy, JVD, thyromegaly, bruits. Cardiac exam: An irregularly irregular rhythm, with what sounds like a normal S1 and S2, without murmurs, rubs, gallops. There is quite a bit of ectopy. Lungs: Patient has fairly coarse breath sounds, with overall diminishment of air movement. Breathing is nonlabored. He does have occasional cough. abdomen: Is protuberant, but otherwise nontender, with normal bowel sounds. There is no guarding or rebound. He does have some scrotal edema. Extremities: Finger nails all appear clubbed. He has trace pitting edema of the ankles and feet. he does have 2 small ulcers on his left heel, which are somewhat damp, but otherwise clean without obvious infection. He does have signs of old stasis dermatitis. Neurologic: The patient is awake and alert, but is very slow to answer questions Speech remains slurred. . He is somewhat hard of hearing, but is able to answer questions about date and time and place. He does report feeling anxious about his stroke. Cranial nerve exam shows some difficulty following commands, with some weakness when trying to squeeze his eyes shut, particularly on the left. There is prominent left lower facial droop. Cranial nerves otherwise appear fairly intact, although he does have less of a shrug on the left than the right. Motor exam: Shows weakness of the left arm, with inability to raise his left arm as well as the right. 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 He also has moderately decreased left biceps extension and flexion. Right side shows fairly normal exam and strength. Sensory exam: He does appear to have decreased sensation in the left arm only. Cerebellar exam: He has severe left pronator drift. He has very clumsy left finger to finger exam. Right side is normal. During stroke scale testing, he is able to accurately identify objects And situations using pictures. Assessment and plan. 1. Neurologic. This patient developed fairly acute to subacute symptoms today, and CT scan confirms right hemisphere middle cerebral artery distribution stroke. He also has critical right internal carotid stenosis. Tele-stroke consultation was obtained with Dr Nadira Luna. The patient was felt to be outside of the window where TPA would have been useful. Plavix was added to his regimen. She will be transferred to [place], neurology/stroke unit this evening, via [facility]. His sesuclzr-wd-[id number] and other family members were present during consultation and interviews, and are in agreement with transfer. Case was reviewed with Dr. Bill(?) Of neurology, Dr. Arce(?) Of interventional neurology, and Dr. Mclaughlin of the hospitalist service at [place], and they have graciously accepted the patient in transfer. Initial CT scan shows significant atrophy, also possibly due to chronic alcohol use and perhaps chronic hypoxia. #2. Pulmonary. The patient presents with room air hypoxia. He has decreased breath sounds, and clubbing on exam, and I suspect he may have chronic hypoxia related to COPD . He also has known underlying CHF and coronary artery disease. CT scan cannot rule out an inflammatory process, but he does not offer any symptoms of acute pneumonia. -DuoNeb and budesonide nebulizers, and convert these 2 inhalers at discharge. -Continue oxygen to keep saturations above 90%. He may end up needing to go home with oxygen. 3. Cardiac. Known ischemic coronary disease. His vice president of talent acquisition had mentioned perhaps doing a nuclear stress test in November, to see if his previous ischemic sounds have worsened. -Initial enzymes were negative. EKG is suggestive of underlying atrial flutter with frequent ventricular ectopy versus ectopy with aberrancy. I suspect this is also chronic, and aggravated by his impressive alcohol consumption. Magnesium is also a bit low, and was replaced IV. -Resume aspirin, verapamil, spironolactone, Lasix, lisinopril, as tolerated. Most or all blood pressure medication should be held for 24-48 hours, to allow permissive hypertension. Hypertension. Initial blood pressures were a bit on the low side, and are now probably closer to his baseline. His alcohol intoxication at the time of presentation probably also played a role. History of paroxysmal ventricular tachycardia. It is unclear if the current ectopy is ventricular or aberrant conduction. Current EKG appears to show atrial flutter. He would be a candidate for anticoagulation, but I will leave this to his vice president of talent acquisition, as he is also at high risk for bleeding, given his excess alcohol use. At this time he will continue with Plavix, and aspirin, although the aspirin might need to be decreased to 81 mg. Discussion of Coumadin therapy should be done as well. -Optimize magnesium and potassium. Keep O2 saturations above 90%. History of CHF. He may have mild pulmonary edema, but I do not think I am willing to diurese him further, given blood pressure issues and significant electrolyte abnormalities. He should have follow-up with his vice president of talent acquisition when he gets back to [place], as he is due for a nuclear stress test, and should probably have follow-up echo. 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 #3. Alcohol abuse. This patient drinks fairly massive amounts of alcohol every day. He is still driving, which is quite worrisome. I discussed with both the patient and his grandson, but this is not a safe practice, even though he says he does not drink on any day that he drives, until he is finished driving. That would mean , however, that he is at fairly high risk for alcohol withdrawal symptoms when he takes a day to drive over here. 4. CODE STATUS: Full code, according to the patient and his [id number], although he has nothing in writing formally. 5.: DVT prophylaxis: Subcu heparin was started. 6. Renal. Patient presents with hyponatremia and other electrolyte abnormalities, likely due to his long-standing diuretic use and alcohol abuse. Diuretics were held this morning. rePlaced magnesium. Creatinine is a bit higher this morning than last night. Continue to monitor. 7. Hyperlipidemia. Continue Lopid and Lipitor 8. GERD. Continue omeprazole. 9. She reports history of anxiety, for which she uses Ativan twice daily as needed. This seems like a high risk medication in the setting of chronic alcohol abuse, but he may be using this to treat some withdrawal symptoms during the day. Approximately 2 hours was spent with initial evaluation of the patient earlier today, and then ongoing follow-up visits. An additional 90-120 minutes was spent this evening, during the neurology/tele-stroke consultation, initial evaluation when patient presented with stroke symptoms, ongoing interactions with the patient and his family, and then numerous conversations with outside MDs for arranging transfer Discharge diagnosis: Acute right parietal stroke; acute hypoxia; COPD; alcohol abuse - Time Spent with Patient Total time spent providing and/or coordinating discharge services: Greater than 30 minutes Medical - DS: Exam - Constitutional Vitals: Vital Signs Temp Pulse Pulse Resp BP BP BP 10/22/16 17:52 94/55 10/22/16 17:15 106/73 10/22/16 16:50 18 117/91 10/22/16 16:00 97.7 F 94 H 18 125/76 10/22/16 15:11 116 H 18 10/22/16 12:00 97.6 F 70 18 144/90 10/22/16 08:04 116 H 22 10/22/16 08:03 110 H 22 10/22/16 08:00 97.0 F 89 18 135/93 10/22/16 06:00 10/22/16 04:10 105/51 Pulse Ox 10/22/16 17:52 10/22/16 17:15 10/22/16 16:50 90 10/22/16 16:00 92 10/22/16 15:11 10/22/16 12:00 92 10/22/16 08:04 10/22/16 08:03 93 10/22/16 08:00 91 10/22/16 06:00 90 10/22/16 04:10 Intake and Output 10/22/16 10/22/16 10/22/16 05:59 13:59 21:59 Intake Total 50 / 50 Output Total 200 / 200 150 / 150 400 / 400 Balance -200 / -100 -150 / -150 -350 / -350 Intake: IV 50 / 50 Output: Void Amount 200 / 200 150 / 150 400 / 400 Medical - DS: Data Labs on day of discharge: Labs from last 24 hours 10/22/16 10/22/16 10/22/16 23:22 23:22 23:22 WBC RBC Hgb Hct MCV MCH MCHC RDW Plt Count MPV Gran % Lymph % (Auto) [place] % (Auto) Eos % (Auto) Baso % (Auto) Gran # Lymph # (Auto) [place] # (Auto) Eos # (Auto) Baso # (Auto) POC PT POC INR D-Dimer 2.83 H Sodium 125 L Potassium 3.5 Chloride 85 L Carbon Dioxide 17 L Anion Gap 23.0 H BUN 18 Creatinine 1.3 H GFR Calculation 53 Glucose 91 Uric Acid Calcium 8.9 Phosphorus Magnesium Total Bilirubin 0.4 Direct Bilirubin GGT AST 18 ALT 14 Alkaline Phosphatase 58 Lactate Dehydrogenase Troponin T < 0.01 NT-Pro-B Natriuret Pep 1184.0 H Total Protein 7.4 Albumin 3.9 Globulin 3.5 Albumin/Globulin Ratio 1.1 Triglycerides 10/22/16 10/22/16 10/22/16 23:22 05:34 05:34 WBC 14.4 H RBC 4.93 Hgb 16.0 Hct 48.0 MCV 97.3 MCH 32.4 MCHC 33.3 RDW 14.8 H Plt Count 287 MPV 8.0 Gran % 86.0 H Lymph % (Auto) 7.4 L [place] % (Auto) 5.9 Eos % (Auto) 0.2 Baso % (Auto) 0.5 Gran # 12.3 H Lymph # (Auto) 1.1 L [place] # (Auto) 0.9 Eos # (Auto) 0 Baso # (Auto) 0.1 POC PT 14.9 H POC INR 1.3 H D-Dimer Sodium 131 L Potassium 3.5 Chloride 93 L Carbon Dioxide 21 L Anion Gap 17.0 H BUN 14 Creatinine 1.0 GFR Calculation 73 Glucose 118 H Uric Acid 9.5 H Calcium 8.5 L Phosphorus 5.1 H Magnesium 1.6 Total Bilirubin 0.5 Direct Bilirubin 0.2 GGT 39 AST 17 ALT 12 Alkaline Phosphatase 52 Lactate Dehydrogenase 187 Troponin T NT-Pro-B Natriuret Pep Total Protein 6.7 Albumin 3.6 Globulin 3.1 Albumin/Globulin Ratio 1.2 Triglycerides 118 October 22, 1734: CT of the head: Moderate sized acute infarct in the distribution of the right middle cerebral artery, measuring 4 x 4.5 cm this also involves the right side insula and external capsule. No hemorrhage or mass-effect CTA: Occlusion of the third order branches of the right middle cerebral artery, with associated nonhemorrhagic infarct. Greater than 90% stenosis at the origin of the right internal carotid artery due to plaque. October 22: Chest x-ray: Widespread increased interstitial lung markings bilaterally, with mild cardiomegaly. Prominent central pulmonary vessels. Stable diffuse pulmonary disease, which may be a combination of COPD and interstitial pulmonary edema. October 21: Ethyl alcohol level elevated at 0.142 CBC White blood cell count 10,000, hemoglobin 16.7, hematocrit 50, differential shows RDW 14.8, granulocyte count 12,300, low lymphocyte count of 1100 Chemistry panel: Sodium low 129, potassium 3.4, chloride 90, anion gap 19, BUN 17, creatinine 1.3 Pro time is still elevated at 14.9, INR 1.3 D-dimer 2.83, elevated Lactic acid was normal at 1.9 BNP elevated at 1184 Troponin normal at less than 0.01 EKG: Shows atrial fibrillation with frequent ectopy and a rate of about 100 CT angiogram of the chest: Mild to moderate centrilobular emphysema throughout both lungs. Widely enlarged heart. Large amount of calcified plaque in the LAD and circumflex and right coronary artery. Cardiomegaly with probable CHF, cannot rule out inflammatory process. Head CT: Moderate asymmetry of the left frontal lobe, with milder atrophy of the right frontal lobe both temporal lobes left parietal lobe and cerebellum. No acute infarct or hemorrhage. Ossified plaques are noted. Medical - DS: A/P - Patient/Caregiver Discharge Instructions Activity: other Diet: Low Sodium (2gm), Cardiac Additional Instructions: Please call to schedule a post hospital follow up appointment with your Primary care physician when you return home. - Problem Maintenance (1) Metabolic acidosis Status: Acute (2) Alcoholic intoxication Status: Acute (3) Hypoxia Status: Acute (4) Right middle cerebral artery stroke Status: Acute - Follow up Plan [facility] Prognosis: Fair Rehab Potential: Good Overall status at discharge: patient is not back to baseline Medical - DS: Qual - VTE Deep Vein Thrombosis/Pulmonary Embolism Present on Admission: No
[2016-10-22] MEDS ORDERED: ATORVASTATIN 20 MG TABLET PO SCH (21:00)
[2016-10-22] MEDS ORDERED: BUDESONIDE 0.5 MG/2 ML AMPUL.NEB NEB SCH (21:00)
[2016-10-23] MEDS ORDERED: ASPIRIN 325 MG ENTERIC COATED TABLET PO SCH (09:00)
[2016-10-23] MEDS ORDERED: FUROSEMIDE 40 MG TABLET PO SCH (09:00)
[2016-10-23] MEDS ORDERED: SPIRONOLACTONE 25 MG TABLET PO SCH (09:00)
[2016-10-23] MEDS ORDERED: OMEPRAZOLE 20 MG CAPSULE PO SCH (09:00)
== END 2016-10-22 21:10 | disposition short-term general hospital (02) | DRG 65 ==
LOC: ED 23:20 → ICU 10-22 03:57
PROVIDERS: ADMIT Internal Medicine; ATTEND Internal Medicine